=== PATIENT | male | born 1995 | race Caucasian/White ===

== ENCOUNTER 2019-11-02 15:11 | Emergency (ER) | payer BC, OTHER ==
[2019-11-02 15:16] VITALS: TEMP 99.2
[2019-11-02] MEDS ORDERED: HYDROcodone/APAP 5-325MG 1 EACH TAB PO STA (15:26)
[2019-11-02] MEDS ORDERED: IBUPROFEN 600 MG TAB PO STA (15:26)
--- NOTE | 2019-11-02 15:43 | ED ---
Upper Extremity HPI - General Chief Complaint: Extremity Injury, Upper Stated Complaint: R Arm Injury Time Seen by Provider: 11/02/19 15:19 Source: patient Mode of arrival: ambulatory Limitations: no limitations - History of Present Illness Initial Comments: patient is a 24-year-old male presenting to emergency Department with complaints of an injury to his left arm. [place] he went to try to catch Frisbee with his left hand and fell landing on his left arm. Patient states it bent "a weird way." He is having pain in his forearm. He denies hitting his head or any other injuries from this fall. He denies any previous surgeries of his left upper extremity. He has no further complaints at this time. - Related Data Previous Rx's Medication Instructions Recorded Hydrocodone/Acetaminophen [[place] 1 tab PO Q6HR PRN #10 tab 11/02/19 5-325] Allergies Allergy/AdvReac Type Severity Reaction Status Date / Time azithromycin [From Zithromax] Allergy Unknown Verified 11/02/19 15:16 Review of Systems ROS Statement: Those systems with pertinent positive or pertinent negative responses have been documented in the HPI. ROS Other: All systems not noted in ROS Statement are negative. Past Medical History Past Medical History: No Reported History History of Any Multi-Drug Resistant Organisms: None Reported Past Surgical History: Back Surgery Past Psychological History: No Psychological Hx Reported Smoking Status: Never smoker Past Alcohol Use History: Rare Past Drug Use History: None Reported General Exam - General Exam Comments Initial Comments: GENERAL: Patient is well-developed and well-nourished. Patient is nontoxic and in no acute distress. HEAD: Atraumatic, normocephalic. EYES: Pupils equal round and reactive to light, extraocular movements intact, sclera anicteric, conjunctiva are normal. Eyelids were unremarkable. ENT: TMs normal, nares patent, oropharynx clear without exudates. Moist mucous membranes. NECK: Normal range of motion, supple without lymphadenopathy or JVD. LUNGS: Unlabored respirations. Breath sounds clear to auscultation bilaterally and equal. No wheezes rales or rhonchi. HEART: Regular rate and rhythm without murmurs, rubs or gallops. ABDOMEN: Soft, nontender, normoactive bowel sounds. No guarding, no rebound. No masses appreciated. : Deferred MUSCULOSKELETAL: patient has pain to palpation of the left forearm, no pain in the left upper arm, or wrist. patient has some moderate swelling over the left forearm. He is neurovascular intact. He is unable to actively extend the elbow or supinate. Backpackers Manager strength is decreased secondary to pain. No clubbing or cyanosis. NEUROLOGICAL: Patient is alert and oriented x 3. Normal speech, normal gait. PSYCH: Normal mood, normal affect. SKIN: Warm, Dry, normal turgor, no rashes or lesions noted. Limitations: no limitations Course Vital Signs 11/02/19 15:13 Temperature 99.2 F Pulse Rate 83 Respiratory 18 Rate Blood Pressure 162/103 O2 Sat by Pulse 98 Oximetry Procedures - Orthopedic Fracture Reduction Fracture #1 Consent Obtained: verbal consent Side: left Fracture Reduction Location: radius Analgesia: other (morphine) Technique: finger traps (with weight) Post Reduction X-rays Demonstrate: other (no reduction) Post-Reduction Neuro Exam: intact Post-Reduction Vascular Exam: intact Splint Applied: Yes Patient Tolerated Procedure: well - Orthopedic Splinting/Casting Injury #1 Side: left Upper Extremity Injury Location: short arm Upper Extremity Immobilizer: sling/shoulder immobilizer, sugar tong splint, Tima wrap, synthetic pre-padded splint Medical Decision Making - Medical Decision Making patient is a 24-year-old male here for left forearm pain after he fell trying to catch a Frisbee. X-rays reveal an acute comminuted displaced fracture of the proximal radius shaft. patient was given pain meds, he was put in a finger trap along with some weights on his forearm to allow for gravity to aid with reduction. Post reduction films show continued displacement. I did contact Dr. Lozano who recommended we put him in a sugar tong splint, sling and he will see him first thing Monday morning. Patient has tolerated this very well. I will send him home with a few tablets of [place]. He can continue with ibuprofen as well. Patient is agreeable with this plan of care. He is stable for discharge. Return parameters were discussed with the patient he verbalizes understanding. case discussed with Dr. Mon. Disposition Clinical Impression: Closed fracture of left proximal radius Disposition: HOME SELF-CARE Condition: Stable Instructions (If sedation given, give patient instructions): Arm Fracture in Adults (ED) Additional Instructions: Please return to the Emergency Department if symptoms worsen or any other concerns. Leave splint in place until follow-up with orthopedics. May alternate pain medicine with ibuprofen. May also apply ice to the arm. Prescriptions: Hydrocodone/Acetaminophen [[place] 5-325] 1 tab PO Q6HR PRN #10 tab PRN Reason: Pain Is patient prescribed a controlled substance at d/c from ED?: No Referrals: Herman Brown DO [Primary Care Provider] - 1-2 days Leoncio Lozano DO [Medical Doctor] - 1-2 days
--- NOTE | 2019-11-02 15:51 | XR ---
EXAMINATION TYPE: XR forearm LT DATE OF EXAM: 11/02/2019 COMPARISON: NONE HISTORY: Fall. Pain. TECHNIQUE: 2 views FINDINGS: There is comminuted fractures between middle and proximal thirds of the radius. There is 10 0% posterior displacement of the distal major fragment on the lateral view. There is no dislocation. Elbow joint is anatomic. Wrist joint appears intact. IMPRESSION: Acute comminuted mildly displaced fracture proximal radius shaft.
[2019-11-02] MEDS ORDERED: MORPHINE SULFATE 4 MG/ML SYRINGE IM STA (16:10)
--- NOTE | 2019-11-02 17:24 | XR ---
EXAMINATION TYPE: XR forearm LT DATE OF EXAM: 11/02/2019 COMPARISON: Today HISTORY: Reduction TECHNIQUE: 2 views FINDINGS: There is comminuted fractures between middle and proximal thirds of the radius. There is pe rsistent 100% posterior displacement of the distal major fragment on the lateral view. There is donna l alignment. IMPRESSION: Persistent 100% offset of the major fragments.
[2019-11-02 17:56] VITALS: BP 144/92; PULSE 64; RESP 16
== END 2019-11-02 17:56 | disposition home or self-care (01) ==
LOC: EC 15:11
DX: S52.352A Displaced comminuted fracture of shaft of radius, left arm, initial encounter for closed fracture (principal); Z88.1 Allergy status to other antibiotic agents; W19.XXXA Unspecified fall, initial encounter; Y93.74 Activity, frisbee; Y92.832 Beach as the place of occurrence of the external cause
CPT/HCPCS: 73090; 99283; 25505; 96372; J2270

== ENCOUNTER 2019-11-08 14:59 | Day surgery (SDC) | payer BC ==
[2019-11-07 09:24] VITALS: BMI 33.3
[~2019-11-08 14:59] MED LIST: DEXAMETHASONE SOD PHOSPHATE 10 MG/ML 1 ML VIAL IV ONE; HYDROcodone/APAP 5-325MG 1 EACH TAB PO ONE; LACTATED RINGERS 1,000 ML IV SCH; LIDOCAINE 1% (10MG/ML) FOR IV START INTRADERMA PRN; MIDAZOLAM 2 MG/2 ML VIAL IV PRN; ONDANSETRON 4 MG/2 ML VIAL IVP ONE
[2019-11-08] MEDS ORDERED: ONDANSETRON 4 MG/2 ML VIAL ONE (15:28)
[2019-11-08] MEDS: fentaNYL (PF) 50 MCG/ML 2 ML AMP IVP ONE ×2 (16:12→16:40)
[2019-11-08] MEDS ORDERED: HYDROmorphone (PF) 1 MG/ML ONE (16:52)
[2019-11-08] MEDS ORDERED: LIDOCAINE 1% INJ 10MG/ML (20 ML MDV) ONE (16:52)
[2019-11-08] MEDS ORDERED: PROPOFOL 10 MG/ML 20 ML VIAL IV ONE (16:52)
[2019-11-08] MEDS ORDERED: MIDAZOLAM 2 MG/2 ML VIAL ONE (16:52)
[2019-11-08] MEDS ORDERED: fentaNYL (PF) 50 MCG/ML 2 ML AMP ONE (16:52)
[2019-11-08] MEDS ORDERED: LACTATED RINGERS 1,000 ML IV ONE (17:15)
[2019-11-08] MEDS ORDERED: LIDOCAINE 1%-EPI 1:100,000 20 ML VIAL SQ ONE ×2 (18:40→18:48)
[2019-11-08 19:14] VITALS: TEMP 97.9
[2019-11-08] MEDS: HYDROmorphone 0.5 MG/0.5 ML SYRINGE IVP PRN ×3 (19:34→19:48)
[2019-11-08] MEDS ORDERED: ONDANSETRON 4 MG/2 ML VIAL IVP ONE (19:53)
[2019-11-08 20:04] VITALS: RESP 20
[2019-11-08] MEDS ORDERED: HYDROcodone/APAP 5-325MG 1 EACH TAB ONE (20:22)
[2019-11-08 20:31] VITALS: BP 130/74; PULSE 94
--- NOTE | 2019-11-09 08:18 | XR ---
EXAMINATION TYPE: XR forearm LT DATE OF EXAM: 11/08/2019 COMPARISON: 11/02/2019 HISTORY: 24-year-old male postop fracture fixation TECHNIQUE: 2 views FINDINGS: Overlying plaster cast. Interval nailing along the length of the radius traversing the proximal third radial shaft fracture. Some minimal residual cortical offset remains. Minimal offset butterfly fragm ent also noted. Alignment significantly improved. IMPRESSION: Interval nailing and improved alignment across the mildly comminuted, proximal radial shaft fracture.
--- NOTE | 2019-11-09 08:19 | XR ---
EXAMINATION TYPE: XR forearm LT, FL guidance operating room DATE OF EXAM: 11/08/2019 COMPARISON: NONE HISTORY: 24 year-old male left radial shaft fracture FINDINGS: Intraoperative fluoroscopic images during intramedullary nailing across the proximal radial shaft fra cture. FLUOROSCOPY Fluoroscopy time of 90 seconds was used during radial shaft fracture fixation. 6 image/s document/s the procedure. IMPRESSION: Intraoperative fluoroscopy as above.
--- NOTE | 2019-11-18 16:28 | P.OP ---
Date of Procedure: 11/08/19 Preoperative Diagnosis: Comminuted, displaced left proximal radial shaft fracture. Postoperative Diagnosis: Comminuted, displaced left proximal radial shaft fracture. Procedure(s) Performed: Closed reduction of left proximal radial shaft fracture and internal fixation with elastic intramedullary nail. Implants: Synthes 2.5 mm titanium elastic nail Anesthesia: MELISSA Surgeon: Leoncio Lozano Monumental Stonemason #1: Yadira Sharpe Estimated Blood Loss (ml): 5 Condition: stable Disposition: PACU Indications for Procedure: The patient is a 24-year-old male who injured his left forearm after [place] resulting in a displaced proximal radial shaft fracture. Treatment options (and their associated risks and benefits) were discussed in the office. Given the fracture pattern, location and amount of displacement, surgical stabilization was recommended. The pros and cons of various fixation methods were discussed, including intramedullary nailing versus open reduction and internal fixation with plates and screws. We reviewed the need for postoperative immobilization and potential secondary surgery for hardware removal associated with IM fixation. The patient expressed understanding, willingness to accept these risks and agreed with operative intervention. In preop, additional questions were addressed and the patient wished to proceed with surgery. Consent forms were signed. The surgical site was confirmed and marked preoperatively. Description of Procedure: The patient was positioned supine with the left arm on a hand table. Anesthesia and prophylactic antibiotics were administered uneventfully. A tourniquet was placed on the operative arm, which was then prepped and draped in standard, sterile fashion. A time-out was performed, confirming patient identifiers, the operative side, site and the procedure to be performed: all team members expressed agreement. The limb was exsanguinated with an Esmarch and the tourniquet was inflated. The fracture was evaluated with intraoperative fluoroscopy: the fracture was at the proximal third of the shaft with a large butterfly fragment. There was angulation and complete displacement of the distal fragment. The fracture was manually reduced, using a combination of elbow flexion and forearm rotation. Repeat imaging demonstrated excellent alignment of the fracture and good cortical apposition. The decision was made to proceed with intramedullary fixation. A radial entry was selected. The starting point was localized with intraoperative fluoroscopy. A longitudinal incision was made radially at the base of the radial styloid. The skin was incised sharply incised and the subcutaneous tissues were spread. A large branch of the superficial radial sensory nerve was identified, mobilized and protected. The interval between the brachioradialis and first dorsal compartment was developed to expose the radial metaphysis at the base of the radial styloid. The periosteum was sharply incised and reflected. The starting point was confirmed with intraoperative fluoroscopy. A drill was used to open the cortex at the entry site, which was gradually enlarged with an awl. Based on preoperative templating, a 2.5 mm elastic nail was selected. A slight bend was made in the nail and it was attached to a T-handle. The nail was gradually advanced by hand, checking position with fluoroscopy. Some resistance was met at the isthmus. The locking slide hammer was attached to the nail. Gentle impaction was used to advance the nail up to the fracture site. With the fracture held in a reduced position, the nail was advanced across the fracture site and into the proximal fragment to the level of the radial neck. Fracture reduction and depth of insertion were confirmed on imaging. The insertion depth was marked on the nail which was then backed out slightly. The nail was cut and impacted into its final position. When fully inserted, the distal tip of the nail was nearly flush with the level of the cortex. After fixation, motion testing was performed, demonstrating good elbow ROM in flexion & extension; excellent forearm rotation without clicking, crepitus or focal restriction. No gross laxity with collateral stress at the elbow or with DRUJ shuck. Final x-rays were obtained, confirming fracture reduction and implant position. No iatrogenic fractures were identified. The fracture was evaluated with dynamic fluoroscopy: there was no gross motion at the fracture site with passive motion or bending stress. The tourniquet was released after 69 minutes at 200 mmHg. Good hemostasis was obtained with manual pressure. The wound was thoroughly irrigated with normal saline. The periosteum was repaired with interrupted 2-0 Vicryl sutures. The subcutaneous tissues were reapproximated with interrupted 3-0 Vicryl sutures. The incision was closed with 4-0 Nylon using an alternating running-horizontal mattress suture. Local anesthetic with epinephrine was injected into the per ioperative subcutaneous tissues for adjunct postoperative pain control and hemostasis. A sterile dressing was applied, followed by a sugartong plaster splint. All sponge, needle and instrument counts were correct at the end of the case. The patient tolerated the procedure well and was taken to the recovery room in stable condition.
== END 2019-11-08 20:55 | disposition home or self-care (01) ==
LOC: OR 14:59
PROVIDERS: ATTEND Orthopaedic Surgery
DX: S52.352A Displaced comminuted fracture of shaft of radius, left arm, initial encounter for closed fracture (principal); M41.9 Scoliosis, unspecified; J45.909 Unspecified asthma, uncomplicated; K21.9 Gastro-esophageal reflux disease without esophagitis; Z86.718 Personal history of other venous thrombosis and embolism; Z79.891 Long term (current) use of opiate analgesic; Z97.3 Presence of spectacles and contact lenses; Z98.890 Other specified postprocedural states; Z88.1 Allergy status to other antibiotic agents; Z98.1 Arthrodesis status; Z87.19 Personal history of other diseases of the digestive system; W18.39XA Other fall on same level, initial encounter; Y93.74 Activity, frisbee; Y92.828 Other wilderness area as the place of occurrence of the external cause
CPT/HCPCS: 73090; 25515; C1713; J2250; J1100; J0690; J2405; J2001; J3010; J1170 ×2; J2704